=== PATIENT | male | born 1965 | race Caucasian/White ===

== ENCOUNTER 2024-08-21 13:01 | Emergency (ER) | payer OTHER ==
[~2024-08-21] VITALS: Ht 170.2 cm; Wt 72.5 kg
[2024-08-21 13:15] VITALS: TEMP 97.6
[2024-08-21] MEDS: MORPHINE SULFATE 2 MG/ML SYRINGE IVP ONE (13:44)
[2024-08-21 13:51] LABS: ANION GAP 6 mmol/L (8-16); CALCIUM, TOTAL 9.1 mg/dL (8.8-10.5); CARBON DIOXIDE 29 mmol/L (22-29); CHLORIDE 101 mmol/L (98-107); CREATININE 0.89 mg/dL (0.60-1.30); GLOMERULAR FILTR. RATE CALC > 60 mL/min (>60); GLUCOSE,RANDOM 152 mg/dL (70-110); POTASSIUM 4.8 mmol/L (3.5-5.1); SODIUM SERUM 136 mmol/L (136-145); UREA NITROGEN, BLOOD 12 mg/dL (7-18)
[2024-08-21 13:53] LABS: BASOPHILS % (AUTO) 0.6 % (0.0-2.0); C-REACTIVE PROTEIN QUANT 1.23 mg/dL (0.00-0.30); EOSINOPHILS % (AUTO) 8.5 % (1.0-6.0); HEMATOCRIT 35.7 % (41-53); HEMOGLOBIN 11.5 g/dL (13.5-17.5); LYMPHOCYTES # (AUTO) 2.6 K/uL (1.0-4.8); MEAN CORPUSCULAR HEMOGLOBIN 26.2 pg (26.0-34.0); MEAN CORPUSCULAR HGB CONC 32.2 G/dL (31.0-37.0); MEAN CORPUSCULAR VOLUME 81 fL (80-100); MONOCYTES # (AUTO) 0.8 K/uL (0.1-1.0); MONOCYTES % (AUTO) 7.8 % (2.0-9.0); NEUTROPHILS # (AUTO) 5.6 K/uL (1.8-7.7); NEUTROPHILS % (AUTO) 57.1 % (40.0-70.0); PLATELET COUNT (AUTO) 249 K/uL (150-450); RED BLOOD CELL COUNT(AUTO) 4.39 MIL/uL (4.50-5.90); RED CELL DISTRIBUTION WIDTH 14.3 % (11.5-14.5); WHITE BLOOD COUNT (AUTO) 9.9 K/uL (4.5-11.0)
[2024-08-21 14:04] LABS: ERYTHROCYTE SEDIMENTATION RATE 41 MM/HR (0-20)
[2024-08-21] MEDS: CEFEPIME HCL 2 GM in DEXTROSE 5%-WATER 50 ML IV ONE (14:15)
[2024-08-21] MEDS: VANCOMYCIN 1.25 GM/WATER(PEG) 250 ML IV ONE (14:16)
[2024-08-21] MEDS: OxyCODONE HCL/ACETAMINOPHEN 5-325 MG TABLET PO ONE (17:36)
[2024-08-21] MEDS ORDERED: INSLAN SQ (22:38)
[2024-08-21] MEDS ORDERED: MAGN-169 PO ×2 (22:38)
[2024-08-21] MEDS ORDERED: ACET-3385 PO (22:38)
[2024-08-21] MEDS ORDERED: ACET-2247 PO (22:38)
[2024-08-21] MEDS ORDERED: POLY17PO47 PO (22:38)
[2024-08-21] MEDS ORDERED: OXYC10TA59 PO (22:38)
[2024-08-21] MEDS ORDERED: BISA-151 PO (22:38)
[2024-08-21] MEDS ORDERED: MULT-248 PO (22:38)
[2024-08-21] MEDS ORDERED: METF-1211 PO (22:38)
[2024-08-21] MEDS ORDERED: GABA-1181 PO (22:38)
[2024-08-21] MEDS ORDERED: FEP PR (22:38)
[2024-08-21] MEDS ORDERED: MICO45CR44 TP (22:38)
[2024-08-21] MEDS ORDERED: CHOL25TA4 PO (22:38)
[2024-08-21] MEDS ORDERED: DOCU-412 PO (22:38)
[2024-08-21] MEDS ORDERED: BACL10TA PO (22:38)
[2024-08-21] MEDS ORDERED: INSU100V SQ (22:41)
[2024-08-21] MEDS: OxyCODONE HCL 10 MG ER TABLET PO ONE (22:53)
[2024-08-22] MEDS: OxyCODONE HCL 10 MG ER TABLET PO ONE (05:33)
[2024-08-22] MEDS: CEFEPIME HCL 2 GM in DEXTROSE 5%-WATER 50 ML IV SCH (06:58)
[2024-08-22] MEDS: VANCOMYCIN 1.5 GM/WATER(PEG) 300 ML IV ONE (07:57)
[2024-08-22] MEDS ORDERED: VANCOMYCIN 1.25 GM/WATER(PEG) 250 ML IV SCH (08:00)
[2024-08-22] MEDS: MORPHINE SULFATE 2 MG/ML SYRINGE IVP ONE (11:03)
[2024-08-22 11:30] VITALS: BP 129/75; PULSE 74; RESP 17; O2SAT 98
== END 2024-08-22 13:30 | disposition short-term general hospital (02) ==
LOC: EMS 13:04
DX: S90.922A Unspecified superficial injury of left foot, initial encounter (principal); E11.69 Type 2 diabetes mellitus with other specified complication; Z89.422 Acquired absence of other left toe(s); X58.XXXA Exposure to other specified factors, initial encounter; Y93.89 Activity, other specified; Y92.89 Other specified places as the place of occurrence of the external cause; Y99.8 Other external cause status
CPT/HCPCS: 99285; 96365; 96375; 80048; 85025; 85651; 86140; 87040; 87081; 36415; 73630; 96368; 96367; 96376; J0692 ×2; J2270 ×2; J7060 ×2; J3490 ×2